=== PATIENT | male | born 1990 | race Caucasian/White ===

== ENCOUNTER 2021-06-15 18:54 | Emergency (ER) | payer OTHER ==
[~2021-06-15 18:54] MED LIST: IBUPROFEN600 MG PO
[2021-06-15 20:09] LABS: HEMOGLOBIN 15.8 gm/dl (14.0-17.5); RED BLOOD COUNT 5.18 M/UL (4.20-5.50); WHITE BLOOD COUNT 5.5 K/UL (4.5-11.0)
[2021-06-15 20:22] LABS: BUN/CREATININE RATIO 11 (0-10)
[2021-06-15] MEDS ORDERED: DECADRON6 MG PO (23:02)
[2021-06-15] MEDS ORDERED: BAYER CHEWABLE81 MG PO (23:02)
[2021-06-15] MEDS ORDERED: ZITHROMAX250 MG PO (23:06)
== END 2021-06-15 23:25 | disposition home or self-care (01) ==
LOC: ER1 18:54
PROVIDERS: Physician Assistant
DX: U07.1 COVID-19 (principal); Z90.89 Acquired absence of other organs
CPT/HCPCS: 71045; 80053; 85025; 99284; U0002